=== PATIENT | male | born 1975 | race Caucasian/White ===

== ENCOUNTER 2020-09-06 17:16 | Inpatient (IN) ==
[2020-09-06 18:03] LABS: Basophils % 0.2 % (0.0-0.8); Eosinophils % 0.1 % (0.00-10.9); Hematocrit 46.4 VOL% (42.0-52.0); Hemoglobin 16.2 GM/DL (14.0-18.0); Immature Granulocytes % 0.8 %; Immature Granulocytes Absolute 0.11 #; Lymphocytes # 1.2 10*3/uL (1.4-4.0); Lymphocytes % 8.9 % (21.2-54.2); Mean Corpuscular HGB Conc 34.9 GM/DL (32-36); Mean Platelet Volume 11.3 FL (9.6-12.0); Monocytes % 7.8 % (1.7-12.7); Neutrophils % 82.2 % (38.7-73.9); Platelet Count 223 T/CUMM (130-400); Red Blood Count 4.99 MC/CUMM (3.8-5.5); Red Cell Distribution Width 11.9 % (9.3-17.3); White Blood Count 13.5 T/CUMM (4-12)
[2020-09-06] MEDS ORDERED: KETOROLAC 30 MG/1 ML VIAL ONE (18:20)
[2020-09-06] MEDS ORDERED: ONDANSETRON 4 MG/2 ML VIAL ONE (18:28)
[2020-09-06] MEDS ORDERED: HYDROmorphone 2 MG/1 ML VIAL ONE (18:29)
[2020-09-06] MEDS ORDERED: KETOROLAC 30 MG/1 ML VIAL IV STA (18:38)
[2020-09-06] MEDS ORDERED: PANTOPRAZOLE 40 MG VIAL IV STA (18:38)
[2020-09-06] MEDS ORDERED: ONDANSETRON 4 MG/2 ML VIAL IV STA (18:38)
[2020-09-06] MEDS ORDERED: SODIUM CHLORIDE 0.9% 500 ML IV STA (18:38)
[2020-09-06] MEDS ORDERED: HYDROmorphone 2 MG/1 ML VIAL IV STA (18:38)
[2020-09-06] MEDS ORDERED: ALUM/MAG/SIMETH/LIDO VISC 1:1 30 ML BOTTLE PO STA (18:38)
[2020-09-06 18:40] LABS: Albumin 3.7 G/DL (3.4-5.0); Bilirubin,Total 1.2 MG/DL (0.2-1.0); Calcium 9.5 MG/DL (8.5-10.1); Osmolality,Calculated 275.8 MOS/KG (273-304); Total Protein 8.7 G/DL (6.4-8.3)
[2020-09-06 20:04] LABS: Bilirubin,Urine Negative (Negative); Blood, Urine Small mg/dL (Negative); Glucose,Urine (UA) >=500 mg/dL (Negative); Ketones,Urine 80 mg/dL (Negative); Mucus,Urine Occasional /LPF (Occasional); Nitrite,Urine Negative (Negative); Protein,Urine 30 MG/DL; RBC,Urine 3 /HPF (0-4); Urine Appearance CLEAR (Clear); Urine Color Yellow (Yellow); Urine Specific Gravity 1.036 (1.001-1.035); Urine Urobilinogen < 2.0 EU/DL (0.2-1.0); WBC,Urine <1 /HPF (0-6)
[2020-09-06] MEDS ORDERED: INSULIN REGULAR 100 UNIT/ML SUBCUT STA (20:06)
[2020-09-06] MEDS ORDERED: DEXTROSE 50% 25 GM/50 ML VIAL IV PRN (20:42)
[2020-09-06] MEDS ORDERED: GLUCAGON 1 MG VIAL IM PRN (20:42)
[2020-09-06] MEDS ORDERED: DOCUSATE SODIUM 100 MG CAPSULE PO PRN (20:42)
[2020-09-06] MEDS ORDERED: ONDANSETRON 4 MG/2 ML VIAL IV PRN (20:42)
[2020-09-06] MEDS ORDERED: MORPHINE 4 MG/1 ML VIAL IV PRN (20:47)
[2020-09-06] MEDS ORDERED: MAGNESIUM CITRATE 300 ML BOTTLE PO PRN (20:48)
[2020-09-06] MEDS ORDERED: ENOXAPARIN 40 MG/0.4 ML SYRINGE SUBCUT SCH (21:00)
[2020-09-06] MEDS: CITALOPRAM 20 MG TABLET PO SCH (23:27)
[2020-09-07] MEDS: LACTATED RINGERS 1,000 ML IV SCH ×5 (00:49→17:35)
[2020-09-07] MEDS: INSULIN LISPRO 100 UNIT/ML SUBCUT SCH ×5 (01:22→21:22)
[2020-09-07] MEDS: HYDROmorphone 2 MG/1 ML VIAL IV PRN ×6 (02:10→23:19)
[2020-09-07 05:48] LABS: Basophils % 0.3 % (0.0-0.8); Eosinophils % 0.4 % (0.00-10.9); Hematocrit 42.2 VOL% (42.0-52.0); Hemoglobin 14.4 GM/DL (14.0-18.0); Immature Granulocytes % 0.8 %; Immature Granulocytes Absolute 0.09 #; Lymphocytes # 1.2 10*3/uL (1.4-4.0); Lymphocytes % 10.7 % (21.2-54.2); Mean Corpuscular HGB Conc 34.1 GM/DL (32-36); Mean Platelet Volume 11.6 FL (9.6-12.0); Monocytes % 9.4 % (1.7-12.7); Neutrophils % 78.4 % (38.7-73.9); Platelet Count 180 T/CUMM (130-400); Red Blood Count 4.49 MC/CUMM (3.8-5.5); Red Cell Distribution Width 11.8 % (9.3-17.3); White Blood Count 11.2 T/CUMM (4-12)
[2020-09-07 06:09] LABS: Albumin 3.2 G/DL (3.4-5.0); Bilirubin,Total 0.9 MG/DL (0.2-1.0); Calcium 9.3 MG/DL (8.5-10.1); Osmolality,Calculated 269.7 MOS/KG (273-304); Risk Ratio 4.91; Total Protein 7.5 G/DL (6.4-8.3); VLDL CHOLESTEROL 67.4 MG/DL
[2020-09-07] MEDS: amLODIPine 10 MG TABLET PO SCH (09:01)
[2020-09-07] MEDS: PANTOPRAZOLE 40 MG VIAL IV SCH (09:02)
[2020-09-07] MEDS: ENOXAPARIN 40 MG/0.4 ML SYRINGE SUBCUT SCH (14:06)
[2020-09-07] MEDS: INSULIN GLARGINE 100 UNIT/ML SUBCUT SCH (17:09)
[2020-09-07] MEDS: TAMSULOSIN 0.4 MG CAPSULE PO SCH (21:22)
[2020-09-07] MEDS: CITALOPRAM 20 MG TABLET PO SCH (21:22)
[2020-09-08] MEDS: HYDROmorphone 2 MG/1 ML VIAL IV PRN ×2 (04:45→20:53)
[2020-09-08 05:47] LABS: Basophils % 0.1 % (0.0-0.8); Calcium 9.1 MG/DL (8.5-10.1); Eosinophils # 0.1 10*3/uL (0.0-0.87); Hematocrit 36.6 VOL% (42.0-52.0); Immature Granulocytes % 0.4 %; Immature Granulocytes Absolute 0.03 #; Lymphocytes # 1.3 10*3/uL (1.4-4.0); Lymphocytes % 17.9 % (21.2-54.2); Mean Corpuscular HGB Conc 33.6 GM/DL (32-36); Mean Corpuscular Volume 95.3 FL (87-102); Mean Platelet Volume 11.6 FL (9.6-12.0); Monocytes % 8.5 % (1.7-12.7); Neutrophils % 72.1 % (38.7-73.9); Osmolality,Calculated 272.2 MOS/KG (273-304); Platelet Count 158 T/CUMM (130-400); Red Blood Count 3.84 MC/CUMM (3.8-5.5); Red Cell Distribution Width 11.7 % (9.3-17.3)
[2020-09-08 05:50] LABS: Hemoglobin 12.3 GM/DL (14.0-18.0); White Blood Count 7.3 T/CUMM (4-12)
[2020-09-08] MEDS: amLODIPine 10 MG TABLET PO SCH (08:50)
[2020-09-08] MEDS: PANTOPRAZOLE 40 MG VIAL IV SCH (08:52)
[2020-09-08] MEDS: INSULIN LISPRO 100 UNIT/ML SUBCUT SCH ×4 (08:52→20:55)
[2020-09-08] MEDS: INSULIN GLARGINE 100 UNIT/ML SUBCUT SCH (08:52)
[2020-09-08] MEDS: ENOXAPARIN 40 MG/0.4 ML SYRINGE SUBCUT SCH (12:18)
[2020-09-08] MEDS: CITALOPRAM 20 MG TABLET PO SCH (20:52)
[2020-09-08] MEDS: TAMSULOSIN 0.4 MG CAPSULE PO SCH (20:53)
[2020-09-09] MEDS: PANTOPRAZOLE 40 MG VIAL IV SCH (10:42)
[2020-09-09] MEDS: INSULIN GLARGINE 100 UNIT/ML SUBCUT SCH (10:43)
[2020-09-09] MEDS: amLODIPine 10 MG TABLET PO SCH (10:44)
[2020-09-09] MEDS: INSULIN LISPRO 100 UNIT/ML SUBCUT SCH ×2 (10:44→13:03)
[2020-09-09] MEDS: ENOXAPARIN 40 MG/0.4 ML SYRINGE SUBCUT SCH (13:04)
[2020-09-09 19:23] VITALS: BP 156/74
== END 2020-09-09 13:08 | disposition home or self-care (01) | DRG 439 ==
LOC: N.ED 17:16 → SUATTDRO 20:42 → N.EDINP 20:42 → N.3E 21:54
PROVIDERS: ADMIT Internal Medicine; ATTEND Emergency Medicine